=== PATIENT | female | born 1955 ===

== ENCOUNTER 2017-12-06 09:47 | Day surgery (SDC) | payer BC ==
[~2017-12-06 09:47] MED LIST: Acetaminophen TAB* 325 MG PO PRN; Buffered Lidocaine 0.9% SYRIN* 5 ML/SYR SYRINGE INTRADERM ONE
[2017-12-06] MEDS ORDERED: Midazolam* 1 MG/ML 2 ML VIAL (2 MG) ONE ×2 (10:18→11:57)
[2017-12-06] MEDS ORDERED: Tetracaine 0.5% OPTH.SOL 4 ML* 1 DROP BTL ONE (11:09)
[2017-12-06] MEDS ORDERED: Phenylephrine 2.5% OPTH.SOL* 2 ML BTL ONE (11:09)
[2017-12-06] MEDS ORDERED: Cyclopentolate 1% OPTH.SOL* 2 ML BTL ONE (11:09)
[2017-12-06] MEDS ORDERED: Ketorolac 0.5% OPHTH (NF) 0.5 % 5 ML BTL ONE (11:09)
[2017-12-06] MEDS ORDERED: Tropicamide 1% OPTH.SOL* BTL ONE (11:09)
[2017-12-06] MEDS ORDERED: Lidocaine 1%* 5 ML VIAL ONE (11:09)
[2017-12-06] MEDS ORDERED: Neomycin/Polymy/Dex OPHTH.OIN* 3.5 GM ONE (11:09)
[2017-12-06] MEDS ORDERED: fentaNYL* 50 MCG/ML 2 ML VIAL (100 MCG VIAL) ONE (11:42)
[2017-12-06 12:18] VITALS: BP 102/62
[2017-12-06] MEDS ORDERED: Phenylephr/Ketorolac 1%/0.3% OPH DROP BTL ONE (12:18)
--- NOTE | 2017-12-07 00:55 | OP ---
DATE OF OPERATION: 12/06/17 - [facility] DATE OF : 55 SURGEON: Manny Gill MD SIZE STAMPER: None. ANESTHESIA: Topical with intravenous sedation. PRE-OP DIAGNOSIS: White cataract and small pupil, right eye. POST-OP DIAGNOSIS: White cataract and small pupil, right eye. OPERATIVE PROCEDURE: Phacoemulsification and cataract extraction with posterior chamber intraocular lens implant, right eye. COMPLICATIONS: None. ESTIMATED BLOOD LOSS: None. DESCRIPTION OF PROCEDURE: The patient was brought to the operating room and given a small amount of intra-venous sedation. A drop of tetracaine was placed in her right eye. The patient was prepped and draped in the usual sterile fashion for ophthalmic surgery and attention was directed to the right eye where a speculum was placed. It was noted that the pupil, which had been dilated per protocol preoperatively, measured approximately 3.5 mm in diameter. Omidria was added to the irrigating solution. A paracentesis was then created at the 10:30 position. A 0.1 cc of 1% preservative-free lidocaine was injected into the anterior chamber followed by DisCoVisc. The eye was digitally stabilized while a 2.75 mm keratome was used to create a triplanar clear corneal incision at the 9 o'clock position. The pupil was felt to be unsafely small, so a Malyugin ring was introduced into the anterior chamber and used to capture the iris. At this point, a capsulorrhexis was created with a cystotome and Utrata forceps. Due to the whiteness of the cataract, it became quite difficult to see the capsulorrhexis and the last 90 degrees of the capsulorrhexis were performed using a beer-can capsulotomy technique. BSS on a cannula was used to hydrodissect the lens from the capsule, although due to the opacification of the cataract, it was difficult to see a fluid wave. Phacoemulsification was then performed in a divide and conquer technique to successfully create 4 fragments, which were removed. Residual cortical material was removed using irrigation and aspiration. The eye was inspected and the posterior capsule remained intact and the anterior capsulorrhexis, while irregular, was adequate in size. DisCoVisc was then introduced into the capsular bag. An AU00T0 18.5 diopter lens was inserted into the capsular bag. The Malyugin ring was removed from the eye atraumatically. Viscoelastic was then removed from the eye using irrigation and aspiration. BSS on a cannula was used to hydrate the corneal stroma and seal the wound. At the end of the case, the pupil measured approximately 4.5 mm and was fairly round. The eye pressure appeared normal and the wound was watertight. The lens appeared central and stable. The speculum was removed from the eye and topical Maxitrol ointment was placed on the surface of the eye. The eye was closed, patched, and shielded and the patient was sent to the recovery room in stable condition with postop instructions and followup appointment given. [id number]/[facility] #: [id number] BIRD
== END 2017-12-06 12:50 | disposition home or self-care (01) ==
LOC: OREAST 09:47
PROVIDERS: ATTEND Ophthalmology
DX: H25.011 Cortical age-related cataract, right eye (principal); H21.561 Pupillary abnormality, right eye; Z87.891 Personal history of nicotine dependence; I35.0 Nonrheumatic aortic (valve) stenosis; D50.9 Iron deficiency anemia, unspecified; Z85.72 Personal history of non-Hodgkin lymphomas; N18.9 Chronic kidney disease, unspecified; I12.9 Hypertensive chronic kidney disease with stage 1 through stage 4 chronic kidney disease, or unspecified chronic kidney disease
CPT/HCPCS: A9270-GY; C9447; J2250; J3010; V2632

== ENCOUNTER 2017-12-13 07:22 | Day surgery (SDC) | payer BC ==
[~2017-12-13 07:22] MED LIST changes: +Trypan Blue 0.06% SOL* 0.5 ML BTL ONE
[2017-12-13] MEDS ORDERED: Phenylephrine 2.5% OPTH.SOL* 2 ML BTL ONE (07:24)
[2017-12-13] MEDS ORDERED: Tropicamide 1% OPTH.SOL* BTL ONE (07:24)
[2017-12-13] MEDS ORDERED: Cyclopentolate 1% OPTH.SOL* 2 ML BTL ONE (07:24)
[2017-12-13] MEDS ORDERED: Neomycin/Polymy/Dex OPHTH.OIN* 3.5 GM ONE (07:24)
[2017-12-13] MEDS ORDERED: Ketorolac 0.5% OPHTH (NF) 0.5 % 5 ML BTL ONE (07:24)
[2017-12-13] MEDS ORDERED: Tetracaine 0.5% OPTH.SOL 4 ML* 1 DROP BTL ONE (07:24)
[2017-12-13] MEDS ORDERED: Lidocaine 1%* 5 ML VIAL ONE (07:24)
[2017-12-13] MEDS ORDERED: Phenylephr/Ketorolac 1%/0.3% OPH DROP BTL ONE (07:25)
[2017-12-13] MEDS ORDERED: Midazolam* 1 MG/ML 2 ML VIAL (2 MG) ONE (08:22)
[2017-12-13] MEDS ORDERED: fentaNYL* 50 MCG/ML 2 ML VIAL (100 MCG VIAL) ONE (09:39)
[2017-12-13 10:09] VITALS: BP 104/50
--- NOTE | 2017-12-14 00:57 | OP ---
DATE OF OPERATION/DATE OF DICTATION: 12/13/17 - [facility] DATE OF : 55 SURGEON: Dr. Manny Gill. CAR EXAMINER: None. ANESTHESIA: Topical with intravenous sedation. PRE-OP DIAGNOSIS: Cataract, left eye with small pupil and white cataract. POST-OP DIAGNOSIS: Cataract, left eye with small pupil and white cataract. OPERATIVE PROCEDURE: Phacoemulsification and cataract extraction with posterior chamber intraocular lens implant, left eye. COMPLICATIONS: None. BLOOD LOSS: None. DESCRIPTION OF PROCEDURE: The patient was brought to the operating room after receiving appropriate preoperative dilating drops. She was given a drop of Tetracaine and a small amount of intravenous sedation. Her left eye was prepped and draped in the usual sterile fashion for ophthalmic surgery and attention was directed to the left eye where a speculum was placed. The pupil was noted to be approximately 3.5 to 4 mm in diameter. A paracentesis was created at the 5 o'clock position and 0.1 cc of 1% preservative-free Lidocaine was injected into the anterior chamber. This was followed by room air and Visionblue dye. DisCoVisc was then placed into the anterior chamber. The eye was digitally stabilized where a 2.75 mm keratome was used to create a triplanar clear corneal incision at the 3 o'clock position. A continuous curvilinear capsulorrhexis was created with a cystotome and Utrata forceps measuring approximately 4 mm in diameter. BSS on a cannula was used to hydrodissect the lens from the capsule. Phacoemulsification was performed in a [id number]-cgieeja technique to create 4 fragments which were removed. Residual cortical material was removed with irrigation and aspiration. DisCoVisc was used to inflate the capsular bag. An AUOOTO 19.5 diopter lens was inserted into the capsular bag. DisCoVisc was removed from the eye. BSS on a cannula was used to hydrate the corneal stroma and seal the wound. At the end of the case, the pupil was round. The lens was centered and stable. The eye pressure appeared normal and the wound was water tight. The speculum was removed and topical Maxitrol ointment was placed on the surface of the eye. The eye was closed, patched and shielded and the patient was sent to the recovery room in stable condition with postoperative instructions and follow-up appointment given. [id number]/[facility] #: [id number] BIRD
== END 2017-12-13 10:07 | disposition home or self-care (01) ==
LOC: OREAST 07:22
PROVIDERS: ATTEND Ophthalmology
DX: H25.12 Age-related nuclear cataract, left eye (principal); Z87.891 Personal history of nicotine dependence; I35.0 Nonrheumatic aortic (valve) stenosis; Z86.73 Personal history of transient ischemic attack (TIA), and cerebral infarction without residual deficits; Z85.72 Personal history of non-Hodgkin lymphomas; I11.9 Hypertensive heart disease without heart failure
CPT/HCPCS: A9270-GY; C9447; J2250; J3010; V2632

== ENCOUNTER 2018-09-11 10:13 | Emergency (ER) | payer BC ==
[2018-09-11 10:19] VITALS: BP 145/62
--- NOTE | 2018-09-11 10:55 | ED ---
Lower Extremity - HPI Summary HPI Summary: Patient is a 63-year-old female presenting to the ED with right suprapatellar knee pain which began upon awakening this morning. She has never had this in the past. She has never been diagnosed with arthritis. She denies any redness or warmth to the area. She remains ambulatory, but with pain only to the suprapatellar region. She denies any pain with flexion or extension otherwise. She states she is otherwise healthy. She has not taken any OTC medications for relief. She denies fevers, sweats, chills. Denies any pain to the hip and ankle. - History of Current Complaint Chief Complaint: EDExtremityLower Stated Complaint: RIGHT KNEE PAIN PER PT Time Seen by Provider: 09/11/18 10:20 Hx Obtained From: Patient Onset of Pain: Minutes, Hours Onset/Duration: Hours Severity Initially: Moderate Severity Currently: Moderate Pain Intensity: 8 Pain Scale Used: 0-10 Numeric Location: Is Discrete @ - right suprapatellar tenderness Associated Signs And Symptoms: Positive: Negative Aggravating Factor(s): Standing Alleviating Factor(s): Rest, Elevation - Risk Factors Gout Risk Factors: Negative DVT Risk Factors: Negative Septic Arthritis Risk Factor: Negative - Allergies/Home Medications Allergies/Adverse Reactions: Allergies Allergy/AdvReac Type Severity Reaction Status Date / Time No Known Allergies Allergy Verified 09/11/18 10:19 PMH/Surg Hx/FS Hx/Imm Hx Previously Healthy: Yes Endocrine/Hematology History: Reports: Hx Anemia - on iron Denies: Hx Diabetes - borderline Cardiovascular History: Reports: Hx Hypertension - on meds, Hx Valvular Heart Disease - aortic valve stenosis Denies: Hx Pacemaker/ICD History: Reports: Other Problems/Disorders - one kidney low --functioning Musculoskeletal History: Reports: Hx Arthritis Sensory History: Reports: Hx Cataracts - both eyes, Hx Contacts or Glasses - glasses Denies: Hx Hearing Aid Opthamlomology History: Reports: Hx Cataracts - both eyes, Hx Contacts or Glasses - glasses Psychiatric History: Denies: Hx Panic Disorder - Cancer History Cancer Type, Location and Year: nonHodgkins (has stent) Hx Chemotherapy: Yes - Surgical History Surgery Procedure, Year, and Place: CHEMO PORT 2005 Hx Anesthesia Reactions: No - Immunization History Hx Pertussis Vaccination: No Immunizations Up to Date: Yes Infectious Disease History: No Infectious Disease History: Denies: Hx Clostridium Difficile, Hx Hepatitis, Hx Human Immunodeficiency Virus (HIV), Hx of Known/Suspected MRSA, Hx Shingles, Hx Tuberculosis, Hx Known/ Suspected VRE, Hx Known/Suspected VRSA, History Other Infectious Disease, Traveled Outside the [place] in Last 30 Days - Family History Known Family History: Positive: Cardiac Disease, Hypertension, Diabetes - Social History Occupation: Employed Full-time Lives: With Family Alcohol Use: None Hx Substance Use: No Substance Use Type: Reports: None Hx Tobacco Use: Yes Smoking Status (MU): Current Every Day Smoker Amount Used/How Often: 1-2 PER DAY smoked for 10 years Review of Systems Constitutional: Negative Negative: Fever, Chills, Fatigue, Skin Diaphoresis Negative: Epistaxis, Dental Pain Negative: Palpitations, Chest Pain Genitourinary: Negative Positive: no symptoms reported, see HPI Positive: Arthralgia, Myalgia Skin: Negative Neurological: Negative All Other Systems Reviewed And Are Negative: Yes Physical Exam Triage Information Reviewed: Yes Vital Signs On Initial Exam: Initial Vitals Temp Pulse Resp BP Pulse Ox 96.3 F 88 16 145/62 99 09/11/18 10:15 09/11/18 10:15 09/11/18 10:15 09/11/18 10:15 09/11/18 10:15 Vital Signs Reviewed: Yes Appearance: Positive: Well-Appearing, Well-Nourished Skin: Positive: Warm, Skin Color Reflects Adequate Perfusion Head/Face: Positive: Normal Head/Face Inspection Eyes: Positive: EOMI, Conjunctiva Clear Neck: Positive: Supple, No Lymphadenopathy Respiratory/Lung Sounds: Positive: Clear to Auscultation, Breath Sounds Present Cardiovascular: Positive: Pulses are Symmetrical in both Upper and Lower Extremities Musculoskeletal: Positive: Pain @ - right suprapatellar tenderness without tenderness to the upper or lower extremity Neurological: Positive: Sensory/Motor Intact, Alert, Oriented to Person Place, Time, Speech Normal Psychiatric: Positive: Affect/Mood Appropriate AVPU Assessment: Alert Diagnostics - Vital Signs Vital Signs Temp Pulse Resp BP Pulse Ox 09/11/18 10:15 96.3 F 88 16 145/62 99 - Laboratory Lab Statement: Any lab studies that have been ordered have been reviewed, and results considered in the medical decision making process. Lower Extremity Course/Dx - Course Course Of Treatment: On physical examination, there is a small amount of fluid to the suprapatellar region without erythema or warmth. She endorses pain directly over palpation of the suprapatellar area. Patient is able to flex and extend. She denies any trauma. She denies history of arthritis, or gout. Discussed treatment options with the patient. I've advised we start with conservative measures with NSAIDs, elevation and ice and will follow-up with orthopedics if she develops any worsening or changing symptoms. She agrees with this plan and discharged. - Diagnoses Provider Diagnoses: Suprapatellar effusion of knee Discharge - Sign-Out/Discharge Documenting (check all that apply): Patient Departure Patient Received Moderate/Deep Sedation with Procedure: No - Discharge Plan Condition: Stable Disposition: HOME Patient Education Materials: Knee Bursitis (ED), Tendinitis (ED) Forms: *Work Release Referrals: Lamar Jimenez MD [Primary Care Provider] - Additional Instructions: Ibuprofen 600 mg 3 times daily Ice to the area Elevation when possible Out of work 2 days Follow-up with orthopedics if symptoms persist Return to the ED if he develop any fevers, sweats, chills, worsening swelling or redness to the knee not well controlled with ice and ibuprofen - Billing Disposition and Condition Condition: STABLE Disposition: Home
== END 2018-09-11 10:50 | disposition home or self-care (01) ==
LOC: ED 10:13
DX: M25.461 Effusion, right knee (principal); I10 Essential (primary) hypertension; I35.0 Nonrheumatic aortic (valve) stenosis; D64.9 Anemia, unspecified; F17.210 Nicotine dependence, cigarettes, uncomplicated; Z79.899 Other long term (current) drug therapy; Z85.72 Personal history of non-Hodgkin lymphomas; Z95.828 Presence of other vascular implants and grafts
CPT/HCPCS: 99281